=== PATIENT | female | born 1970 ===

== ENCOUNTER 2024-06-18 07:26 | Day surgery (SDC) | payer OTHER ==
[2024-06-10 14:30] VITALS: BP 120/82
[~2024-06-18] VITALS: Ht 160 cm; Wt 77.1 kg
[~2024-06-18 07:26] MED LIST: ATIVAN1 M1 PO; CYMBALTA60 MG PO; FLEXERIL; PANTOPRAZOLE SO40 MG PO; SEROQUEL300 MG PO; SYNTHROID137 MCG PO; TYMLOS1.56 ML; ZOFRAN8 MG
[2024-06-18] MEDS ORDERED: LIDOCAINE HCL 1%/EPINEPHRINE 20ML VIAL IJ ONE (13:15)
[2024-06-18] MEDS ORDERED: DIBUCAINE 30 GM TUBE RECTAL ONE (13:15)
[2024-06-18] MEDS ORDERED: METRONIDAZOLE/SODIUM CHLORIDE 500 MG/100 ML PIGGYBACK IV ONE (13:15)
[2024-06-18] MEDS ORDERED: CEFTRIAXONE SODIUM 2,000 MG VIAL IV ONE (13:15)
[2024-06-18] MEDS ORDERED: POVIDONE-IODINE 118 ML BOTT TOP ONE (13:15)
[2024-06-18] MEDS ORDERED: BUPIVACAINE HCL 30 ML VIAL IJ ONE (13:15)
[2024-06-18] MEDS ORDERED: HEMOSTATIC MATRIX 1 KIT KIT TOP ONE (13:15)
== END 2024-06-18 17:40 | disposition home or self-care (01) ==
LOC: CIR.AMB 07:26
PROVIDERS: ATTEND Colon & Rectal Surgery
DX: K60.1 Chronic anal fissure (principal); K92.1 Melena; E03.8 Other specified hypothyroidism

== ENCOUNTER 2024-08-27 06:08 | Day surgery (SDC) | payer OTHER ==
[2024-08-21 13:48] VITALS: BP 138/82
[~2024-08-27] VITALS: Ht 160 cm; Wt 74.8 kg
[~2024-08-27 06:08] MED LIST changes: +HORIZANT300 MG PO
[2024-08-27] MEDS ORDERED: CHLORHEXIDINE GLUCONATE 120 ML BOTTLE TOP ONE (06:59)
[2024-08-27] MEDS ORDERED: POVIDONE-IODINE 118 ML BOTT TOP ONE (06:59)
[2024-08-27] MEDS ORDERED: CEFAZOLIN SODIUM 1,000 MG VIAL ONE (06:59)
[2024-08-27] MEDS ORDERED: TRIAMCINOLONE ACETONIDE 40 MG/ML VIAL ONE ×2 (07:23→07:44)
[2024-08-27] MEDS ORDERED: LIDOCAINE HCL 1% 20 ML VIAL IJ ONE (07:24)
[2024-08-27] MEDS ORDERED: BUPIVACAINE HCL/MPF 0.5% 30ML VIAL ONE (07:25)
== END 2024-08-27 11:40 | disposition home or self-care (01) ==
LOC: CIR.AMB 06:08
PROVIDERS: ATTEND Surgery Surgery of the Hand
DX: M65.841 Other synovitis and tenosynovitis, right hand (principal); E03.8 Other specified hypothyroidism; M81.0 Age-related osteoporosis without current pathological fracture; F32.A Depression, unspecified; F41.0 Panic disorder [episodic paroxysmal anxiety]